=== PATIENT | male | born 1995 | race Caucasian/White ===

== ENCOUNTER 2017-01-01 22:00 | Emergency (ER) | payer SELFPAY ==
[2017-01-01 22:39] LABS: BASOPHILS 0.2 %; BASOPHILS ABSOLUTE 0.01 10/3/uL (0.0-0.16); EOSINOPHILS 0.8 %; EOSINOPHILS ABSOLUTE 0.05 10/3/uL (0.0-0.53); ER CBC TAT 0 Hrs 05 Mins; HEMATOCRIT 48.3 % (40.0-51.0); HEMOGLOBIN 17.5 g/dL (13.6-17.8); IMMATURE GRANULOCYTES 0.3 %; IMMATURE GRANULOCYTES ABSOLUTE 0.02 10/3/uL (0.0-0.11); LYMPHOCYTES 36.8 %; LYMPHOCYTES ABSOLUTE 2.22 10/3/uL (0.67-4.30); MANUAL DIFF NO %; MEAN CORPUS HGB CONC 36.2 g/dL (32.0-36.0); MEAN CORPUSCULAR HEMOGLOB 30.8 pg (26.0-34.0); MEAN PLATELET VOLUME 9.7 fL (9.2-13.0); MONOCYTES 12.4 %; MONOCYTES ABSOLUTE 0.75 10/3/uL (0.21-1.20); NEUTROPHILS 49.5 %; NEUTROPHILS ABSOLUTE 2.99 10/3/uL (2.02-8.40); PLATELET COUNT 280 10/3/uL (150-400); RBC DISTRIBUTION WIDTH 12.2 % (12.0-16.0); RED CELL COUNT 5.68 10/6/uL (4.7-6.1)
[2017-01-01 22:53] LABS: A/G RATIO 1.4 (0.7-1.9); ALBUMIN 4.4 G/DL (3.5-5.0); ALKALINE PHOSPHATASE 79 U/L (45-117); BUN (BLOOD UREA NITROGEN) 17 MG/DL (6-23); CALCIUM, SERUM 9.2 MG/DL (8.5-10.4); CHLORIDE, SERUM 104 MMOL/L (96-112); CO2 (CARBON DIOXIDE) 29 MMOL/L (24-34); CREATININE 0.99 MG/DL (0.70-1.30); GFR AFRICAN AMERICAN 126 ML/MIN (>=60); GFR NON AFRICAN AMERICAN 108 ML/MIN (>=60); GLOBULIN 3.1 G/DL (2.5-4.1); GLUCOSE, SERUM 103 MG/DL (60-99); POTASSIUM, SERUM 3.4 MMOL/L (3.5-5.3); SGOT(AST) 10 U/L (5-40); SGPT(ALT) 19 U/L (5-65); SODIUM, SERUM 143 MMOL/L (135-148); TOTAL BILIRUBIN 1.2 MG/DL (0-1.2); TOTAL PROTEIN 7.5 G/DL (6.0-8.5)
== END 2017-01-02 02:06 | disposition home or self-care (01) ==
LOC: ER 22:00
PROVIDERS: Emergency Medicine
DX: R10.11 Right upper quadrant pain (principal); F17.200 Nicotine dependence, unspecified, uncomplicated; Z88.5 Allergy status to narcotic agent
CPT/HCPCS: 74176; 80053; 81001; 83690; 85025; 96374; 99284; J1980; J2405